=== PATIENT | male | born 1975 | race Caucasian/White ===

== ENCOUNTER 2023-10-13 10:51 | Emergency (ER) | payer OTHER, SELFPAY ==
[2023-10-13 11:07] VITALS: BP 169/91
--- NOTE | 2023-10-13 12:31 | ED.GENMED ---
History of Present Illness
<ABRAHAN Bill - Last Filed: 10/13/23 17:03>
General
Chief Complaint: Musculo-Skeletal Complaint
Source: patient
Exam Limitations: none
Time Seen by Provider: 10/13/23 12:17
Nursing documentation reviewed up to this point in time: agreed with
Travel History
Have you had any contact with someone who has COVID-19?: No
Do you have any symptoms of coronavirus? Fever > 100 degrees, chills, cough, shortness of breath, sore throat, loss of taste or smell, muscle aches, or headache?: No
History of Present Illness
History of Present Illness:
48-year-old male presents today complaining of neck pain. Patient started with neck pain 2 weeks ago. He reports his left neck is sore is worse with looking up and looking to the left. He denies any actual injury but now feels what he describes a
popping clicking sensation in his left lateral neck. Patient denies any radiation of pain. He denies any actual headache. He denies any dizziness lightness balance issues. He denies any numbness tingling weakness left upper extremity. He has
taken occasional ibuprofen without relief. He denies any recent fever chills.
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
Past History
<ABRAHAN Bill - Last Filed: 10/13/23 17:03>
Past History
ED Past Medical History: None
ED Past Surgical History: Other (Hernia repair)
Social History
Tobacco: Smoker
Living: with family
Review of Systems
<ABRAHAN Bill - Last Filed: 10/13/23 17:03>
Review of Systems
Allergies reviewed?: Yes
All Other Systems: ROS reviewed and negative except as documented in HPI and ROS
Constitutional: Reports no symptoms; Denies fever, fatigue or chills
Respiratory: Reports no symptoms
Cardiac: Reports no symptoms
ABD/GI: Reports no symptoms
Musculoskeletal: Reports neck pain; Denies back pain
Skin: Reports no symptoms
Neurological: Denies dizzy or headache
Psychiatric: Reports no symptoms
Phy Exam
<ABRAHAN Bill - Last Filed: 10/13/23 17:03>
General Physical Exam
General Presentation: no apparent distress
General age: appears stated age
General Skin: warm and dry
General Habitus: normal
General Mental: alert
Neurological Exam
Neurological Exam: alert, oriented x3, no motor deficits and no sensory deficits
Musculoskeletal Exam
Musculoskeletal Exam: other (Full range of motion to neck however discomfort with looking up and to the left. Patient is tender specifically over the left cervical lateral paraspinal muscle)
Skin Exam
Skin Exam: normal color and warm/dry
Psychiatric Exam
Psychiatric Exam: normal mood/affect
Course
<ABRAHAN Bill - Last Filed: 10/13/23 17:03>
Orders/Labs/Results
Orders:
Orders
10/13/23 12:36
Cervical Spine 4 or 5 Vw [CR Cervical Spine 4 Or 5 Vw] Urgent
Comment:
Reason For Exam: pain
10/13/23 12:37
Dexamethasone Pf [Decadron] 10 mg PO NOW STA
Ketorolac [Toradol] 30 mg IM NOW STA
Vital Signs
Initial and Last Documented VS:
Initial Vital Signs
Temp Pulse Resp BP Pulse Ox
98.9 F 72 18 169/91 100
10/13/23 11:07 10/13/23 11:07 10/13/23 11:07 10/13/23 11:07 10/13/23 11:07
Last Documented Vital Signs
Temp Pulse Resp BP Pulse Ox
98.9 F 72 18 169/91 100
10/13/23 11:07 10/13/23 11:07 10/13/23 11:07 10/13/23 11:07 10/13/23 11:07
Parts Department Manager consulted with Physician
Parts Department Manager consulted with physician?: Yes
Name of Physician Consulted: Lydia
<Travon Freeman MD - Last Filed: 10/13/23 18:57>
Orders/Labs/Results
Orders:
Orders
10/13/23 12:36
Cervical Spine 4 or 5 Vw [CR Cervical Spine 4 Or 5 Vw] Urgent
Comment:
Reason For Exam: pain
10/13/23 12:37
Dexamethasone Pf [Decadron] 10 mg PO NOW STA
Ketorolac [Toradol] 30 mg IM NOW STA
Vital Signs
Initial and Last Documented VS:
Initial Vital Signs
Temp Pulse Resp BP Pulse Ox
98.9 F 72 18 169/91 100
10/13/23 11:07 10/13/23 11:07 10/13/23 11:07 10/13/23 11:07 10/13/23 11:07
Last Documented Vital Signs
Temp Pulse Resp BP Pulse Ox
98.9 F 72 18 169/91 100
10/13/23 11:07 10/13/23 11:07 10/13/23 11:07 10/13/23 11:07 10/13/23 11:07
<ABRAHAN Bill - Last Filed: 10/13/23 17:03>
MDM/Problems Addressed
Differential Diagnosis Includes:
Not limited to torticollis, muscular pain less likely dissection
MDM/Problems Addressed:
Symptoms are with muscle pain. Patient has pain with looking up looking to the left. He has no neurological symptoms or deficits on exam. Case discussed with who examined patient
Patient was given oral Decadron and IM Toradol here feeling slight proving. Will DC on low-dose of Flexeril with naproxen as patient wishes to take naproxen. As discussed I will give 1 more dose of Decadron to take home for Sunday. d/c w/ patient
the importance of close outpatient follow family doctor . May need MRI if continues to have s/s.
<ABRAHAN Bill - Last Filed: 10/13/23 17:03>
*Radiology
Radiology exam reviewed: radiology read reviewed
*Pulse Oximetry
Patient hypoxic: no
*Critical Care Note
Total Time (30-74mins, 75-104mins- exclusive of procedures): Not Applicable
ED Attending Note
<ABRAHAN Bill - Last Filed: 10/13/23 17:03>
-
Portions of this chart may have been created with voice recognition software.� Occasional wrong word or��sound alike� substitutions may have occurred due to the inherent limitations of voice recognition software.
<Travon Freeman MD - Last Filed: 10/13/23 18:57>
ED Attending Note
Patient seen and examined by attending physician: Yes
ED Attending Note:
Patient presents to ED secondary to persistent left-sided neck pain over the past 2 weeks. Patient unsure if he woke up with pain at onset. Denies direct trauma however. Denies recent change in activities. Patient works as a rudd, where
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 Denies previous history of neck injury. Denies headache. Denies loss of sensation or weakness. Denies blurred vision. Denies dizziness.
Physical Exam
General: no apparent distress, not acutely ill. afebrile
Head: nc/at. eomi
Neck: supple. normal range of motion. no midline tenderness. focal tenderness to palpation over the left sternocleidomastoid muscle, without ecchymosis/swelling.
Neuro: alert and oriented. no focal neurological deficits
Skin: no rash
Psychiatric: well kept. interactive and cooperative
Extremities: no edema. no calf tenderness.
X-ray: no acute findings.
History and exam consistent with likely musculoskeletal pain, without any neurological deficit. Given arthritic changes noted on x-ray, along with patient's occupation, it is likely that his symptoms may be secondary bulging disc versus impingement
of nerve. Overall, patient is afebrile, neurologically intact, and without any acute distress. Patient is able to spontaneously range his without any significant difficulty. As such, decision made to discharge patient home at this time with
recommendation to take NSAIDs along with warm compress application, as well as PCP follow-up as an outpatient, including potentially obtaining MRI as an outpatient, if symptoms persist. Patient advised to return to ED with any neurological deficit.
Patient expresses understanding at time of discharge.
Discharge Plan
Departure
Patient Disposition: Home (Routine Discharge)
Date of Disposition: 10/13/23
Time of Disposition: 14:14
Patient with high blood pressure during this ER visit?: Yes
Covid-19: Not Applicable
Discharge Problem:
Acute neck pain
Instructions: Neck Pain ED, BLOOD PRESSURE
Prescriptions:
New
cyclobenzaprine 10 mg tablet
10 mg PO TID PRN (Reason: muscle spasm) Qty: 10 0RF
dexamethasone 6 mg tablet
6 mg PO ONCE Qty: 1 0RF
Rx Instructions:
take on 10/15/2023
No Action
cephalexin 500 MG capsule
500 mg PO BID Qty: 19 0RF
Referrals:
Alfredo Mariee MD [Non-Admitting Privileges] -
Hazel Rasmussen DO [Family Provider] -
Activity Restrictions/Additional Instructions:
As discussed a prescription for Flexeril was sent to your pharmacy. This medication is a muscle relaxer. Will make you drowsy. No driving or drinking alcohol while taking this medication. Also a one-time prescription for steroids was sent to
take as directed on Sunday. You may take naproxen otherwise twice daily. Warm moist heat several times a day. Follow-up with your doctor the next 2 days for reevaluation return if any worsening of symptoms. Follow-up with orthopedics if
continued symptoms you may need MRI.
Return if any worsening of symptoms or increased pain numbness tingling weakness in upper extremities or any further concerns.
Interventions
Interventions:
*General Assessment Last Done: 10/13/23 11:07
*ED COVID-19 Vaccine History Last Done: 10/13/23 11:07
*Nursing Disposition Last Done: 10/13/23 15:10
ED-Musculoskeletal Assessment Last Done: 10/13/23 12:34
Discharge Date and Time
Discharge Date/Time: 10/13/23 15:13
[2023-10-13] MEDS: DECADRON 10 MG PO (12:44)
[2023-10-13] MEDS: TORADOL 30 MG IM (12:45)
== END 2023-10-13 15:13 | disposition home or self-care (01) ==
LOC: EMR 10:51
PROVIDERS: EMERGENCY PHYSICIAN Emergency Medicine; FAMILY PHYSICIAN Family Medicine
DX: M54.2 Cervicalgia (principal); F17.200 Nicotine dependence, unspecified, uncomplicated; R03.0 Elevated blood-pressure reading, without diagnosis of hypertension
CPT/HCPCS: 99284; 96372; 72050